=== PATIENT | male | born 1965 | race Caucasian/White ===

== ENCOUNTER 2025-03-17 16:58 | Emergency (ER) | payer OTHER ==
[2025-03-17] MEDS: Bacitracin Oint 1 GM U/D Packet TOP ONE (17:40)
== END 2025-03-17 17:45 | disposition home or self-care (01) ==
LOC: LB.ED 16:58
DX: S61.203A Unspecified open wound of left middle finger without damage to nail, initial encounter (principal); W23.1XXA Caught, crushed, jammed, or pinched between stationary objects, initial encounter; Y93.89 Activity, other specified
CPT/HCPCS: 99283